=== PATIENT | male | born 1945 | race Caucasian/White ===

== ENCOUNTER 2019-07-05 08:42 | Inpatient (IN) | payer OTHER ==
[~2019-07-05] VITALS: Ht 182.9 cm; Wt 82.4 kg
[~2019-07-05 08:42] MED LIST: ASPI-515 PO; FLEC150T PO; METO50TA82 PO; SIMV40TA20 PO
--- NOTE | 2019-07-05 09:06 | NUR ---
PT WITH C/O N/V/D X1 DAY. PT STATES HE HAS HAD APPROXIMATELY 20 EPISODES OF DIARHHEA LAST NIGHT UNTIL THIS AM, PT HAS HX OF CHRONES. PT STATES HE HAS HAD NAUSEA AND DRY HEAVES ALL MORNING. PT RECIEVED FENTANYL AND ZOFRAN DEPARTURE CLERK PER EMS
[2019-07-05] MEDS ORDERED: ONDANSETRON 2MG/ML, 2ML ONE ×2 (09:49→13:24)
--- NOTE | 2019-07-05 09:52 | NUR ---
ORDERS RECIEVED, PT MEDICATED PER JUN.
[2019-07-05] MEDS ORDERED: SODIUM CHLORIDE FLUSH 10ML SYR IVF ONE (10:00)
[2019-07-05] MEDS ORDERED: SODIUM CHLORIDE 0.9% 1,000ML IVBOLUS ONE (10:00)
[2019-07-05] MEDS ORDERED: ONDANSETRON 2MG/ML, 2ML IVPush ONE ×2 (10:00→14:00)
--- NOTE | 2019-07-05 10:16 | NUR ---
PT TAKEN TO IMAGING, UA SAMPLE COLLECTED AND SENT
[2019-07-05 10:33] LABS: ALBUMIN 2.6 g/dL (3.4-5.0); ANION GAP 12 mmol/L (5-15); CALCIUM 8.1 mg/dL (8.5-10.1); CHLORIDE 103 mmol/L (98-107)
[2019-07-05 10:36] LABS: ALANINE AMINOTRANSFERASE 153 U/L (12-78); ALKALINE PHOSPHATASE 693 U/L (45-117); BILIRUBIN,TOTAL 11.1 mg/dL (0.2-1.0); CREATININE 0.87 mg/dL (0.7-1.3); TOTAL PROTEIN 7.2 g/dL (6.4-8.2)
[2019-07-05 10:41] LABS: CULTURE INDICATED? YES; MICROSCOPIC INDICATED
[2019-07-05 11:08] LABS: BASOPHILS % (AUTO) 0 % (0-1); EOSINOPHILS % (AUTO) 0 % (1-7); LYMPHOCYTES # (AUTO) 0.46 x10^3/uL (1-3.4); LYMPHOCYTES % (AUTO) 4 % (22-44); MD SCAN; MEAN CORPUSCULAR HEMOGLOBIN 30.9 pg (27.5-34.5); MEAN CORPUSCULAR HGB CONC 33.8 g/dL (33.2-36.2); MEAN CORPUSCULAR VOLUME 91.4 fL (81-97); MEAN PLATELET VOLUME 10.6 fL (7.4-10.4); MONOCYTES # (AUTO) 0.59 x10^3/uL (0.2-0.8); MONOCYTES % (AUTO) 5 % (2-9); NEUTROPHILS # (AUTO) 10.67 x10^3/uL (1.8-6.8); NEUTROPHILS % (AUTO) 91 % (42-75); PLATELET COUNT 292 x10^3/uL (130-400); RED CELL DISTRIBUTION WIDTH 16.6 % (9.4-14.8)
--- NOTE | 2019-07-05 11:26 | NUR ---
PT RESTING ON GURNEY, STATES ABD PAIN IS RETURNING, PT ALSO NAUSEATED, WILL NOTIFY RAYMUNDO
[2019-07-05] MEDS ORDERED: MORPHINE SULFATE 4 MG/ML, 1ML ONE (13:25)
[2019-07-05] MEDS ORDERED: MORPHINE SULFATE 4 MG/ML, 1ML IVPush ONE (13:30)
[2019-07-05] MEDS ORDERED: CEFTRIAXONE PMX 1GM/50ML 50 ML IV ONE (14:00)
[2019-07-05] MEDS ORDERED: CEFTRIAXONE PMX 1GM/50ML 50 ML ONE (14:21)
--- NOTE | 2019-07-05 14:28 | NUR ---
VERIFIED OK WITH ERMD, BC NOT NEEDED PRIOR TO ABX. PT MEDICATED PER JUN. PT NOW TO CT AT THIS TIME
[2019-07-05] MEDS ORDERED: OMNIPAQUE 350 MG/ML, 100ML BOTTLE ONE (15:02)
--- NOTE | 2019-07-05 15:03 | NUR ---
REPORT CALLED TO RECIEVING RN
[2019-07-05] MEDS ORDERED: ONDANSETRON ODT 4 MG PO PRN (15:30)
[2019-07-05] MEDS ORDERED: POLYETHYLENE GLYCOL 17 GM PACKET PO PRN (15:30)
[2019-07-05] MEDS ORDERED: ENALAPRILAT 1.25 MG/ML, 2ML IVPush PRN (15:30)
[2019-07-05] MEDS ORDERED: BISACODYL 10 MG SUPP PR PRN (15:30)
[2019-07-05] MEDS ORDERED: OXYcodone IR 5MG TABLET PO PRN (15:30)
[2019-07-05] MEDS ORDERED: hydrALAzine 20 MG/ML, 1ML IVPush PRN (15:30)
[2019-07-05] MEDS ORDERED: ONDANSETRON 2MG/ML, 2ML IVPush PRN (15:30)
[2019-07-05] MEDS ORDERED: DOCUSATE 100 MG CAPSULE PO PRN (15:30)
[2019-07-05] MEDS: ENOXAPARIN 80 MG/0.8 ML SQ SCH (16:43)
[2019-07-05] MEDS: MORPHINE SULFATE 4 MG/ML, 1ML IVPush PRN (16:43)
[2019-07-05] MEDS: METOPROLOL TARTRATE 50 MG TAB PO SCH ×2 (16:44→21:39)
[2019-07-05] MEDS: NS + 20MEQ KCL 1,000 ML IV SCH (18:06)
[2019-07-05 20:42] VITALS: BP 151/81
[2019-07-05] MEDS: DOXYCYCLINE 100MG TABLET PO SCH (21:40)
[2019-07-05] MEDS: FLECAINIDE 50MG TABLET PO SCH (21:40)
[2019-07-06 00:06] VITALS: BP 126/74
[2019-07-06] MEDS: NS + 20MEQ KCL 1,000 ML IV SCH ×2 (04:00→11:36)
[2019-07-06] MEDS: ENOXAPARIN 80 MG/0.8 ML SQ SCH ×2 (05:15→14:41)
[2019-07-06] MEDS: OMEPRAZOLE 20 MG CAPSULE.DR PO SCH (05:16)
[2019-07-06 06:00] LABS: ALANINE AMINOTRANSFERASE 128 U/L (12-78); ALBUMIN 2.3 g/dL (3.4-5.0); ANION GAP 8 mmol/L (5-15); CHLORIDE 104 mmol/L (98-107); CREATININE 0.73 mg/dL (0.7-1.3); MEAN CORPUSCULAR HEMOGLOBIN 31.2 pg (27.5-34.5); MEAN PLATELET VOLUME 10.8 fL (7.4-10.4); PLATELET COUNT 226 x10^3/uL (130-400); RED BLOOD COUNT 3.74 x10^6/uL (4.38-5.82)
[2019-07-06 06:02] LABS: ALKALINE PHOSPHATASE 573 U/L (45-117); BILIRUBIN,TOTAL 14.2 mg/dL (0.2-1.0); TOTAL PROTEIN 6.2 g/dL (6.4-8.2)
[2019-07-06 06:21] LABS: BASOPHILS # (AUTO) 0.03 x10^3/uL (0-0.1); BASOPHILS % (AUTO) 0 % (0-1); EOSINOPHILS # (AUTO) 0.05 x10^3/uL (0-0.4); EOSINOPHILS % (AUTO) 1 % (1-7); LYMPHOCYTES # (AUTO) 0.84 x10^3/uL (1-3.4); LYMPHOCYTES % (AUTO) 9 % (22-44); MD SCAN; MONOCYTES # (AUTO) 0.69 x10^3/uL (0.2-0.8); MONOCYTES % (AUTO) 7 % (2-9); NEUTROPHILS # (AUTO) 8.16 x10^3/uL (1.8-6.8); NEUTROPHILS % (AUTO) 84 % (42-75)
[2019-07-06 07:38] VITALS: BP 156/82
[2019-07-06] MEDS: FLECAINIDE 50MG TABLET PO SCH ×2 (08:08→20:32)
[2019-07-06] MEDS: SERTRALINE 50MG TABLET PO SCH (08:09)
[2019-07-06] MEDS: METOPROLOL TARTRATE 50 MG TAB PO SCH ×2 (08:09→20:33)
[2019-07-06] MEDS: DOXYCYCLINE 100MG TABLET PO SCH ×2 (08:09→20:32)
[2019-07-06 14:00] VITALS: BP 167/90
[2019-07-06] MEDS: CEFTRIAXONE PMX 1GM/50ML 50 ML IV SCH (14:41)
[2019-07-06 19:12] VITALS: BP 151/74
[2019-07-06] MEDS: MORPHINE SULFATE 4 MG/ML, 1ML IVPush PRN (20:44)
[2019-07-06 22:33] LABS: CLOSTRIDIUM DIFFICILE ANTIGEN NEGATIVE; CLOSTRIDIUM DIFFICILE TOXIN NEGATIVE (Negative)
[2019-07-07 00:50] VITALS: BP 158/87
[2019-07-07] MEDS: MORPHINE SULFATE 4 MG/ML, 1ML IVPush PRN ×2 (02:06→23:59)
[2019-07-07] MEDS: OMEPRAZOLE 20 MG CAPSULE.DR PO SCH (05:06)
[2019-07-07] MEDS: ENOXAPARIN 80 MG/0.8 ML SQ SCH ×2 (05:07→16:41)
[2019-07-07 05:20] VITALS: BP 130/88
[2019-07-07] MEDS ORDERED: METOPROLOL TARTRATE 50 MG TAB PO ONE (05:30)
[2019-07-07] MEDS ORDERED: FLECAINIDE 50MG TABLET PO ONE (05:30)
[2019-07-07 06:16] LABS: ALBUMIN 2.3 g/dL (3.4-5.0); ANION GAP 7 mmol/L (5-15); CALCIUM 8.2 mg/dL (8.5-10.1); CHLORIDE 107 mmol/L (98-107)
[2019-07-07 06:19] LABS: ALANINE AMINOTRANSFERASE 122 U/L (12-78); ALKALINE PHOSPHATASE 597 U/L (45-117); CREATININE 0.77 mg/dL (0.7-1.3); TOTAL PROTEIN 6.2 g/dL (6.4-8.2)
[2019-07-07 06:26] LABS: BILIRUBIN,TOTAL 18.8 mg/dL (0.2-1.0)
[2019-07-07 06:59] VITALS: BP 124/82
[2019-07-07] MEDS ORDERED: POTASSIUM CHLORIDE 20 MEQ in SODIUM CHLORIDE 0.9% 250 ML IV ONE (07:30)
[2019-07-07 07:35] LABS: MEAN CORPUSCULAR HEMOGLOBIN 31.6 pg (27.5-34.5); MEAN CORPUSCULAR HGB CONC 34.8 g/dL (33.2-36.2); MEAN CORPUSCULAR VOLUME 90.8 fL (81-97); MEAN PLATELET VOLUME 10.9 fL (7.4-10.4); PLATELET COUNT 211 x10^3/uL (130-400); RED BLOOD COUNT 3.74 x10^6/uL (4.38-5.82); RED CELL DISTRIBUTION WIDTH 16.4 % (9.4-14.8)
[2019-07-07 07:36] LABS: MD YES
[2019-07-07 07:37] LABS: BAND#(MANUAL) 0.34 x10^3/uL; BANDS%(MANUAL) 4 % (0-7); BASOS#(MANUAL) 0.09 x10^3/uL (0-0.1); BASOS% (MANUAL) 1 % (0-1); EOS#(MANUAL) 0.17 x10^3/uL (0.0-0.4); EOS% (MANUAL) 2 % (1-7); LYMPH#(MANUAL) 0.94 x10^3/uL (1-3.4); LYMPHS% (MANUAL) 11 % (22-44); MONOS% (MANUAL) 7 % (2-9); SEG#(MANUAL) 6.38 x10^3/uL (1.8-6.8); SEGS% (MANUAL) 75 % (42-75)
[2019-07-07 07:38] LABS: <PLATELET ESTIMATE> ADEQUATE; LARGE PLATELETS 1+
[2019-07-07 07:39] LABS: GIANT PLATELETS 1+; TARGET CELLS 1+
[2019-07-07 07:50] LABS: TROPONIN I < 0.015 ng/mL (0.000-0.045)
[2019-07-07 08:20] VITALS: BP 111/72
[2019-07-07] MEDS: METOPROLOL TARTRATE 50 MG TAB PO SCH ×2 (09:00→21:19)
[2019-07-07] MEDS: FLECAINIDE 50MG TABLET PO SCH ×2 (09:00→21:19)
[2019-07-07] MEDS: DOXYCYCLINE 100MG TABLET PO SCH ×2 (10:43→21:18)
[2019-07-07] MEDS: SERTRALINE 50MG TABLET PO SCH (10:43)
[2019-07-07 13:50] VITALS: BP 107/73
[2019-07-07 15:54] LABS: BILIRUBIN, DIRECT 14.6 mg/dL (0.1-0.2)
[2019-07-07] MEDS: CEFTRIAXONE PMX 1GM/50ML 50 ML IV SCH (16:41)
[2019-07-07 21:24] VITALS: BP 131/88
[2019-07-08 00:23] VITALS: BP 120/83
[2019-07-08] MEDS: ENOXAPARIN 80 MG/0.8 ML SQ SCH ×2 (04:36→16:12)
[2019-07-08] MEDS: OMEPRAZOLE 20 MG CAPSULE.DR PO SCH (05:48)
[2019-07-08 08:15] LABS: ALANINE AMINOTRANSFERASE 111 U/L (12-78); ANION GAP 4 mmol/L (5-15); CALCIUM 8.2 mg/dL (8.5-10.1); CHLORIDE 106 mmol/L (98-107); CREATININE 0.79 mg/dL (0.7-1.3)
[2019-07-08 08:17] LABS: ALKALINE PHOSPHATASE 536 U/L (45-117); TOTAL PROTEIN 5.7 g/dL (6.4-8.2)
[2019-07-08 08:27] LABS: BILIRUBIN,TOTAL 17.3 mg/dL (0.2-1.0)
[2019-07-08 09:53] VITALS: BP 129/88
[2019-07-08] MEDS: METOPROLOL TARTRATE 50 MG TAB PO SCH ×2 (09:56→23:01)
[2019-07-08] MEDS: FLECAINIDE 50MG TABLET PO SCH ×2 (09:56→23:02)
[2019-07-08] MEDS: DOXYCYCLINE 100MG TABLET PO SCH ×2 (09:57→23:02)
[2019-07-08] MEDS ORDERED: TEMAZEPAM 15 MG CAPSULE PO PRN (10:00)
[2019-07-08] MEDS: SERTRALINE 50MG TABLET PO SCH (10:02)
[2019-07-08 13:52] VITALS: BP 128/81
[2019-07-08] MEDS: CEFTRIAXONE PMX 1GM/50ML 50 ML IV SCH (14:03)
[2019-07-08 22:00] VITALS: BP 152/101
[2019-07-08] MEDS: MORPHINE SULFATE 4 MG/ML, 1ML IVPush PRN (23:01)
[2019-07-09 02:03] VITALS: BP 132/90
[2019-07-09] MEDS: OMEPRAZOLE 20 MG CAPSULE.DR PO SCH (05:04)
[2019-07-09] MEDS: ENOXAPARIN 80 MG/0.8 ML SQ SCH ×2 (05:05→17:22)
[2019-07-09 05:23] LABS: ALANINE AMINOTRANSFERASE 103 U/L (12-78); ANION GAP 5 mmol/L (5-15); CHLORIDE 105 mmol/L (98-107); CREATININE 0.77 mg/dL (0.7-1.3)
[2019-07-09 05:25] LABS: ALKALINE PHOSPHATASE 550 U/L (45-117); TOTAL PROTEIN 5.9 g/dL (6.4-8.2)
[2019-07-09 05:33] LABS: MEAN CORPUSCULAR HEMOGLOBIN 31.4 pg (27.5-34.5); MEAN CORPUSCULAR VOLUME 92.2 fL (81-97); MEAN PLATELET VOLUME 11.6 fL (7.4-10.4); PLATELET COUNT 211 x10^3/uL (130-400); RED CELL DISTRIBUTION WIDTH 16.6 % (9.4-14.8)
[2019-07-09 05:34] LABS: BILIRUBIN,TOTAL 17.4 mg/dL (0.2-1.0)
[2019-07-09 05:51] LABS: MD YES
[2019-07-09 05:52] LABS: EOS#(MANUAL) 0.32 x10^3/uL (0.0-0.4); EOS% (MANUAL) 4 % (1-7); LYMPH#(MANUAL) 0.89 x10^3/uL (1-3.4); LYMPHS% (MANUAL) 11 % (22-44); MONOS#(MANUAL) 0.65 x10^3/uL (0.3-2.7); MONOS% (MANUAL) 8 % (2-9); SEG#(MANUAL) 6.24 x10^3/uL (1.8-6.8); SEGS% (MANUAL) 77 % (42-75)
[2019-07-09 05:53] LABS: ANISOCYTOSIS 1+; POLYCHROMASIA 1+; TARGET CELLS 1+
[2019-07-09 05:54] LABS: <PLATELET ESTIMATE> ADEQUATE; GIANT PLATELETS 1+; LARGE PLATELETS 1+
[2019-07-09 08:30] VITALS: BP 125/83
[2019-07-09] MEDS ORDERED: METOPROLOL TARTRATE 50 MG TAB PO SCH (09:00)
[2019-07-09] MEDS: METOPROLOL TARTRATE 50 MG TAB PO SCH ×2 (10:00→21:14)
[2019-07-09] MEDS: SERTRALINE 50MG TABLET PO SCH (10:00)
[2019-07-09] MEDS: DOXYCYCLINE 100MG TABLET PO SCH ×2 (10:00→21:14)
[2019-07-09] MEDS: FLECAINIDE 50MG TABLET PO SCH ×2 (10:00→21:14)
[2019-07-09] MEDS ORDERED: RIVA20TA PO (10:42)
[2019-07-09] MEDS ORDERED: TRAZ50TA66 PO (10:42)
[2019-07-09] MEDS ORDERED: OMEP-110 PO (10:42)
[2019-07-09] MEDS ORDERED: SERT100T32 PO (10:42)
[2019-07-09 13:04] VITALS: BP 117/79
[2019-07-09] MEDS: CEFTRIAXONE PMX 1GM/50ML 50 ML IV SCH (13:22)
[2019-07-09] MEDS: MORPHINE SULFATE 4 MG/ML, 1ML IVPush PRN ×3 (13:22→21:28)
[2019-07-09 21:09] VITALS: BP 143/92
[2019-07-10 01:34] VITALS: BP 120/78
[2019-07-10 05:13] LABS: MEAN CORPUSCULAR HEMOGLOBIN 31.2 pg (27.5-34.5); MEAN CORPUSCULAR HGB CONC 33.8 g/dL (33.2-36.2); MEAN CORPUSCULAR VOLUME 92.3 fL (81-97); MEAN PLATELET VOLUME 11.1 fL (7.4-10.4); PLATELET COUNT 185 x10^3/uL (130-400); RED BLOOD COUNT 3.71 x10^6/uL (4.38-5.82); RED CELL DISTRIBUTION WIDTH 16.6 % (9.4-14.8)
[2019-07-10 05:15] LABS: ANION GAP 7 mmol/L (5-15); CALCIUM 7.9 mg/dL (8.5-10.1); CHLORIDE 105 mmol/L (98-107); CREATININE 0.71 mg/dL (0.7-1.3)
[2019-07-10] MEDS: OMEPRAZOLE 20 MG CAPSULE.DR PO SCH (05:37)
[2019-07-10] MEDS: ENOXAPARIN 80 MG/0.8 ML SQ SCH (05:38)
[2019-07-10 06:02] LABS: MD YES
[2019-07-10 06:04] LABS: <PLATELET ESTIMATE> ADEQUATE; ANISOCYTOSIS 1+; EOS#(MANUAL) 0.08 x10^3/uL (0.0-0.4); EOS% (MANUAL) 1 % (1-7); LYMPH#(MANUAL) 0.67 x10^3/uL (1-3.4); LYMPHS% (MANUAL) 8 % (22-44); MONOS#(MANUAL) 0.76 x10^3/uL (0.3-2.7); MONOS% (MANUAL) 9 % (2-9); POLYCHROMASIA 1+; SEG#(MANUAL) 6.89 x10^3/uL (1.8-6.8); SEGS% (MANUAL) 82 % (42-75); TARGET CELLS 1+
[2019-07-10 06:05] LABS: LARGE PLATELETS 1+
[2019-07-10 07:45] VITALS: BP 125/83
[2019-07-10] MEDS: SERTRALINE 50MG TABLET PO SCH (10:00)
[2019-07-10] MEDS: DOXYCYCLINE 100MG TABLET PO SCH ×2 (10:00→22:30)
[2019-07-10] MEDS: METOPROLOL TARTRATE 50 MG TAB PO SCH ×2 (10:00→22:30)
[2019-07-10] MEDS: FLECAINIDE 50MG TABLET PO SCH ×2 (10:01→22:29)
[2019-07-10 12:51] VITALS: BP 125/84
[2019-07-10] MEDS: CEFTRIAXONE PMX 1GM/50ML 50 ML IV SCH (15:09)
[2019-07-10] MEDS: ENOXAPARIN 100 MG/ML SQ SCH (16:53)
[2019-07-10 22:25] VITALS: BP 135/97
[2019-07-10] MEDS: MORPHINE SULFATE 4 MG/ML, 1ML IVPush PRN (22:34)
[2019-07-11 03:20] VITALS: BP 111/80
[2019-07-11] MEDS: ENOXAPARIN 100 MG/ML SQ SCH ×3 (04:30→15:39)
[2019-07-11] MEDS: OMEPRAZOLE 20 MG CAPSULE.DR PO SCH (06:20)
[2019-07-11 07:52] VITALS: BP 130/84
[2019-07-11] MEDS: METOPROLOL TARTRATE 50 MG TAB PO SCH ×2 (07:58→21:49)
[2019-07-11] MEDS: SERTRALINE 50MG TABLET PO SCH (07:58)
[2019-07-11] MEDS: DOXYCYCLINE 100MG TABLET PO SCH ×2 (07:58→21:49)
[2019-07-11] MEDS: FLECAINIDE 50MG TABLET PO SCH ×2 (07:58→21:49)
[2019-07-11 13:25] VITALS: BP 126/84
[2019-07-11] MEDS: CEFTRIAXONE PMX 1GM/50ML 50 ML IV SCH (14:15)
[2019-07-11] MEDS: MORPHINE SULFATE 4 MG/ML, 1ML IVPush PRN ×2 (16:13→21:50)
[2019-07-11 19:17] VITALS: BP 135/86
[2019-07-11] MEDS: ALUMINUM/MAG/SIMETHICONE 30 ML UDC PO PRN (23:18)
[2019-07-12 00:45] VITALS: BP 118/84
[2019-07-12] MEDS: ENOXAPARIN 100 MG/ML SQ SCH ×2 (04:30→16:33)
[2019-07-12 05:37] LABS: ALANINE AMINOTRANSFERASE 121 U/L (12-78); ALBUMIN 2.1 g/dL (3.4-5.0); ANION GAP 9 mmol/L (5-15); CALCIUM 8.1 mg/dL (8.5-10.1); CHLORIDE 105 mmol/L (98-107); CREATININE 0.68 mg/dL (0.7-1.3)
[2019-07-12 05:40] LABS: ALKALINE PHOSPHATASE 659 U/L (45-117); TOTAL PROTEIN 6.2 g/dL (6.4-8.2)
[2019-07-12 05:47] LABS: MEAN CORPUSCULAR HEMOGLOBIN 31.8 pg (27.5-34.5); MEAN CORPUSCULAR HGB CONC 34.9 g/dL (33.2-36.2); MEAN CORPUSCULAR VOLUME 91.3 fL (81-97); MEAN PLATELET VOLUME 11.1 fL (7.4-10.4); PLATELET COUNT 183 x10^3/uL (130-400); RED BLOOD COUNT 3.77 x10^6/uL (4.38-5.82); RED CELL DISTRIBUTION WIDTH 16.5 % (9.4-14.8)
[2019-07-12] MEDS: OMEPRAZOLE 20 MG CAPSULE.DR PO SCH (06:00)
[2019-07-12 06:17] LABS: MD YES
[2019-07-12 06:22] LABS: BAND#(MANUAL) 0.12 x10^3/uL; BANDS%(MANUAL) 1 % (0-7); EOS#(MANUAL) 0.35 x10^3/uL (0.0-0.4); EOS% (MANUAL) 3 % (1-7); LYMPH#(MANUAL) 0.71 x10^3/uL (1-3.4); LYMPHS% (MANUAL) 6 % (22-44); MONOS#(MANUAL) 0.47 x10^3/uL (0.3-2.7); MONOS% (MANUAL) 4 % (2-9); SEG#(MANUAL) 10.15 x10^3/uL (1.8-6.8); SEGS% (MANUAL) 86 % (42-75)
[2019-07-12 06:23] LABS: ANISOCYTOSIS 1+
[2019-07-12 06:24] LABS: POLYCHROMASIA 1+
[2019-07-12 06:25] LABS: <PLATELET ESTIMATE> ADEQUATE; LARGE PLATELETS 1+
[2019-07-12 07:20] VITALS: BP 124/83
[2019-07-12] MEDS: FLECAINIDE 50MG TABLET PO SCH ×2 (08:16→20:46)
[2019-07-12] MEDS: METOPROLOL TARTRATE 50 MG TAB PO SCH ×2 (08:16→20:47)
[2019-07-12] MEDS: SERTRALINE 50MG TABLET PO SCH (08:17)
[2019-07-12] MEDS: MORPHINE SULFATE 4 MG/ML, 1ML IVPush PRN (08:21)
[2019-07-12] MEDS: DOXYCYCLINE 100MG TABLET PO SCH ×2 (09:13→20:46)
[2019-07-12] MEDS ORDERED: FENTANYL PF 100 MCG/2ML ONE (09:30)
[2019-07-12] MEDS ORDERED: PROPOFOL 50 ML ONE (09:30)
[2019-07-12] MEDS ORDERED: PROPOFOL 10 MG/ML, 20ML ONE ×2 (10:23)
[2019-07-12] MEDS ORDERED: SUCCINYLCHOLINE 20 MG/ML, 10ML ONE (10:23)
[2019-07-12] MEDS ORDERED: OMNIPAQUE 350 MG/ML, 50 ML BOTTLE ONE (10:35)
[2019-07-12] MEDS ORDERED: EPHEDRINE 50 MG/ML, 1ML IVPush PRN (11:00)
[2019-07-12] MEDS ORDERED: ONDANSETRON ODT 8 MG PO PRN (11:00)
[2019-07-12] MEDS ORDERED: EPHEDRINE 50 MG/ML, 1ML IM PRN (11:00)
[2019-07-12] MEDS ORDERED: DIPHENHYDRAMINE 50 MG/ML, 1ML IVPush PRN (11:00)
[2019-07-12] MEDS ORDERED: MIDAZOLAM 1 MG/ML, 2ML IV PRN (11:00)
[2019-07-12] MEDS ORDERED: PROMETHAZINE 25 MG/ML, 1ML IV PRN (11:00)
[2019-07-12] MEDS ORDERED: ONDANSETRON 2MG/ML, 2ML IV PRN (11:00)
[2019-07-12] MEDS ORDERED: FENTANYL PF 100 MCG/2ML IV PRN (11:00)
[2019-07-12] MEDS ORDERED: LABETALOL 5MG/ML, 20ML IV PRN (11:00)
[2019-07-12 12:30] VITALS: BP 96/64
[2019-07-12] MEDS: CEFTRIAXONE PMX 1GM/50ML 50 ML IV SCH (13:48)
[2019-07-12 14:46] LABS: ALANINE AMINOTRANSFERASE 124 U/L (12-78); ALBUMIN 2.2 g/dL (3.4-5.0); ANION GAP 6 mmol/L (5-15); CALCIUM 8.2 mg/dL (8.5-10.1); CHLORIDE 104 mmol/L (98-107); CREATININE 0.96 mg/dL (0.7-1.3)
[2019-07-12 14:49] LABS: ALKALINE PHOSPHATASE 653 U/L (45-117); TOTAL PROTEIN 6.4 g/dL (6.4-8.2)
[2019-07-12] MEDS ORDERED: GLUCAGON 1 MG ONE (14:52)
[2019-07-12 14:53] LABS: BILIRUBIN,TOTAL 19.6 mg/dL (0.2-1.0)
[2019-07-12 19:15] VITALS: BP 127/85
[2019-07-12] MEDS ORDERED: ROCURONIUM 10MG/ML,5ML ONE (19:40)
[2019-07-12] MEDS: ALUMINUM/MAG/SIMETHICONE 30 ML UDC PO PRN (20:46)
[2019-07-13 00:33] VITALS: BP 95/62
[2019-07-13 05:31] LABS: MEAN CORPUSCULAR HEMOGLOBIN 31.8 pg (27.5-34.5); MEAN CORPUSCULAR VOLUME 93.5 fL (81-97); MEAN PLATELET VOLUME 11.2 fL (7.4-10.4); PLATELET COUNT 209 x10^3/uL (130-400); RED BLOOD COUNT 3.94 x10^6/uL (4.38-5.82); RED CELL DISTRIBUTION WIDTH 16.5 % (9.4-14.8)
[2019-07-13 05:36] LABS: ALANINE AMINOTRANSFERASE 129 U/L (12-78); ALBUMIN 2.1 g/dL (3.4-5.0); ANION GAP 6 mmol/L (5-15); CALCIUM 8.3 mg/dL (8.5-10.1); CHLORIDE 105 mmol/L (98-107); CREATININE 0.93 mg/dL (0.7-1.3)
[2019-07-13 05:38] LABS: ALKALINE PHOSPHATASE 676 U/L (45-117); TOTAL PROTEIN 6.4 g/dL (6.4-8.2)
[2019-07-13] MEDS: ENOXAPARIN 100 MG/ML SQ SCH (05:39)
[2019-07-13] MEDS: OMEPRAZOLE 20 MG CAPSULE.DR PO SCH (05:39)
[2019-07-13 06:10] LABS: MD YES
[2019-07-13 06:12] LABS: ANISOCYTOSIS 1+; BANDS%(MANUAL) 1 % (0-7); EOS#(MANUAL) 0.41 x10^3/uL (0.0-0.4); EOS% (MANUAL) 4 % (1-7); LYMPH#(MANUAL) 1.44 x10^3/uL (1-3.4); LYMPHS% (MANUAL) 14 % (22-44); MONOS#(MANUAL) 0.31 x10^3/uL (0.3-2.7); MONOS% (MANUAL) 3 % (2-9); POLYCHROMASIA 1+; SEG#(MANUAL) 8.03 x10^3/uL (1.8-6.8); SEGS% (MANUAL) 78 % (42-75)
[2019-07-13 06:13] LABS: TARGET CELLS 1+
[2019-07-13 06:14] LABS: <PLATELET ESTIMATE> ADEQUATE; LARGE PLATELETS 1+
[2019-07-13 07:37] VITALS: BP 122/79
[2019-07-13] MEDS: METOPROLOL TARTRATE 50 MG TAB PO SCH ×2 (08:19→21:33)
[2019-07-13] MEDS: DOXYCYCLINE 100MG TABLET PO SCH (08:19)
[2019-07-13] MEDS: SERTRALINE 50MG TABLET PO SCH (08:20)
[2019-07-13] MEDS: ALUMINUM/MAG/SIMETHICONE 30 ML UDC PO PRN (08:20)
[2019-07-13] MEDS: FLECAINIDE 50MG TABLET PO SCH ×2 (08:20→21:33)
[2019-07-13] MEDS: MORPHINE SULFATE 4 MG/ML, 1ML IVPush PRN (08:54)
[2019-07-13] MEDS ORDERED: MORPHINE SULFATE 4 MG/ML, 1ML IVPush PRN (09:30)
[2019-07-13] MEDS ORDERED: KETOROLAC 30 MG/1 ML IVPush PRN (09:30)
[2019-07-13] MEDS ORDERED: PROCHLORPERAZINE 5 MG/ML, 2ML IV SCH (11:30)
[2019-07-13] MEDS ORDERED: PROCHLORPERAZINE 5 MG/ML, 2ML IM PRN (11:30)
[2019-07-13] MEDS ORDERED: OXYcodone IR 5MG TABLET PO PRN (11:30)
[2019-07-13 12:35] VITALS: BP 110/79
[2019-07-13] MEDS: LACTOBACILLUS CHEW TABLET PO SCH ×2 (17:17→21:33)
[2019-07-13] MEDS: ENOXAPARIN 80 MG/0.8 ML SQ SCH (17:17)
[2019-07-13] MEDS: PROCHLORPERAZINE 5 MG/ML, 2ML IV PRN ×2 (17:18→21:34)
[2019-07-13 19:39] VITALS: BP 106/72
[2019-07-14 00:28] VITALS: BP 97/63
[2019-07-14 07:01] VITALS: BP 100/67
[2019-07-14] MEDS: METOPROLOL TARTRATE 50 MG TAB PO SCH ×2 (07:28→21:51)
[2019-07-14] MEDS: LACTOBACILLUS CHEW TABLET PO SCH ×3 (07:28→21:52)
[2019-07-14] MEDS: OMEPRAZOLE 20 MG CAPSULE.DR PO SCH (07:28)
[2019-07-14] MEDS: SERTRALINE 50MG TABLET PO SCH (07:29)
[2019-07-14] MEDS: FLECAINIDE 50MG TABLET PO SCH ×2 (07:29→21:52)
[2019-07-14] MEDS: ENOXAPARIN 80 MG/0.8 ML SQ SCH ×2 (07:29→17:14)
[2019-07-14] MEDS: PROCHLORPERAZINE 5 MG/ML, 2ML IV PRN ×2 (07:30→12:36)
[2019-07-14] MEDS ORDERED: SODIUM CHLORIDE 0.9% 1,000 ML IV SCH (08:30)
[2019-07-14 10:05] LABS: ALBUMIN 1.8 g/dL (3.4-5.0)
[2019-07-14 10:07] LABS: BILIRUBIN,INDIRECT 2.7 mg/dL (0.0-2.0); TOTAL PROTEIN 5.5 g/dL (6.4-8.2)
[2019-07-14 10:22] LABS: BILIRUBIN, DIRECT 13.7 mg/dL (0.1-0.2); BILIRUBIN,TOTAL 16.4 mg/dL (0.2-1.0)
[2019-07-14 13:22] VITALS: BP 96/64
[2019-07-14 15:05] VITALS: BP 105/70
[2019-07-14 21:48] VITALS: BP 112/76
[2019-07-15 01:59] VITALS: BP 98/68
[2019-07-15 06:08] LABS: ALBUMIN 1.8 g/dL (3.4-5.0)
[2019-07-15 06:13] LABS: BILIRUBIN,INDIRECT 2.5 mg/dL (0.0-2.0); BILIRUBIN,TOTAL 14.7 mg/dL (0.2-1.0); TOTAL PROTEIN 5.6 g/dL (6.4-8.2)
[2019-07-15 06:18] LABS: BILIRUBIN, DIRECT 12.2 mg/dL (0.1-0.2)
[2019-07-15] MEDS: OMEPRAZOLE 20 MG CAPSULE.DR PO SCH (06:19)
[2019-07-15] MEDS: ENOXAPARIN 80 MG/0.8 ML SQ SCH (06:19)
[2019-07-15] MEDS: SODIUM CHLORIDE 0.9% 1,000 ML IV SCH ×2 (06:20→21:39)
[2019-07-15] MEDS: PROCHLORPERAZINE 5 MG/ML, 2ML IV PRN (08:09)
[2019-07-15] MEDS: FLECAINIDE 50MG TABLET PO SCH ×2 (08:09→21:38)
[2019-07-15] MEDS: LACTOBACILLUS CHEW TABLET PO SCH ×3 (08:10→21:38)
[2019-07-15] MEDS: SERTRALINE 50MG TABLET PO SCH (08:10)
[2019-07-15 08:12] VITALS: BP 99/61
[2019-07-15] MEDS ORDERED: METOPROLOL TARTRATE 50 MG TAB PO SCH (09:00)
[2019-07-15] MEDS ORDERED: AMIODARONE 200 MG TABLET ONE (10:26)
[2019-07-15 10:28] VITALS: BP 115/77
[2019-07-15] MEDS: AMIODARONE 200 MG TABLET PO SCH (10:29)
[2019-07-15 14:56] VITALS: BP 103/72
[2019-07-15] MEDS: RIVAROXABAN 20 MG TABLET PO SCH (17:28)
[2019-07-15 19:31] VITALS: BP 112/76
[2019-07-15] MEDS ORDERED: METOPROLOL SUCCINATE 100 MG TAB.ER.24H PO SCH (21:00)
[2019-07-15 21:35] VITALS: BP 110/75
[2019-07-16] VITALS (7 sets, daily range): BP systolic 96–124; BP diastolic 67–84
[2019-07-16 04:59] LABS: MEAN CORPUSCULAR HGB CONC 33.7 g/dL (33.2-36.2); MEAN CORPUSCULAR VOLUME 94.8 fL (81-97); MEAN PLATELET VOLUME 10.6 fL (7.4-10.4); PLATELET COUNT 230 x10^3/uL (130-400); RED BLOOD COUNT 2.93 x10^6/uL (4.38-5.82)
[2019-07-16 05:08] LABS: ALBUMIN 1.9 g/dL (3.4-5.0); ANION GAP 9 mmol/L (5-15); CALCIUM 8.2 mg/dL (8.5-10.1); CHLORIDE 107 mmol/L (98-107)
[2019-07-16 05:12] LABS: ALANINE AMINOTRANSFERASE 154 U/L (12-78); ALKALINE PHOSPHATASE 842 U/L (45-117); BILIRUBIN,TOTAL 13.5 mg/dL (0.2-1.0); CREATININE 0.58 mg/dL (0.7-1.3)
[2019-07-16] MEDS: OMEPRAZOLE 20 MG CAPSULE.DR PO SCH (05:43)
[2019-07-16 06:13] LABS: MD YES
[2019-07-16 06:18] LABS: BANDS%(MANUAL) 2 % (0-7); BASOS% (MANUAL) 1 % (0-1); EOS% (MANUAL) 1 % (1-7); LYMPH#(MANUAL) 1.29 x10^3/uL (1-3.4); LYMPHS% (MANUAL) 13 % (22-44); METAMYELOCYTES% (MANUAL) 2 % (0-1); MONOS% (MANUAL) 5 % (2-9); SEG#(MANUAL) 7.52 x10^3/uL (1.8-6.8); SEGS% (MANUAL) 76 % (42-75)
[2019-07-16 06:19] LABS: <PLATELET ESTIMATE> ADEQUATE; <PLT MORPHOLOGY> NORMAL PLT MORPH
[2019-07-16 06:21] LABS: ANISOCYTOSIS 1+
[2019-07-16 06:23] LABS: POLYCHROMASIA 1+; TARGET CELLS 1+
[2019-07-16] MEDS ORDERED: METOPROLOL TARTRATE 50 MG TAB PO SCH ×2 (10:00→14:00)
[2019-07-16] MEDS: AMIODARONE 200 MG TABLET PO SCH (10:21)
[2019-07-16] MEDS: FLECAINIDE 50MG TABLET PO SCH ×2 (10:21→21:24)
[2019-07-16] MEDS: LACTOBACILLUS CHEW TABLET PO SCH ×3 (10:21→21:25)
[2019-07-16] MEDS: SERTRALINE 50MG TABLET PO SCH (10:21)
[2019-07-16] MEDS: SODIUM CHLORIDE 0.9% 1,000 ML IV SCH (12:32)
[2019-07-16] MEDS: RIVAROXABAN 20 MG TABLET PO SCH (16:35)
[2019-07-16] MEDS: METOPROLOL TARTRATE 25 MG TAB PO SCH (21:25)
[2019-07-17 00:38] VITALS: BP 117/78
[2019-07-17] MEDS: SODIUM CHLORIDE 0.9% 1,000 ML IV SCH ×2 (03:07→18:11)
[2019-07-17 05:54] VITALS: BP 113/79
[2019-07-17] MEDS: METOPROLOL TARTRATE 25 MG TAB PO SCH (05:56)
[2019-07-17] MEDS: OMEPRAZOLE 20 MG CAPSULE.DR PO SCH (05:56)
[2019-07-17 06:05] LABS: MEAN CORPUSCULAR HEMOGLOBIN 32.5 pg (27.5-34.5); MEAN CORPUSCULAR HGB CONC 34.5 g/dL (33.2-36.2); MEAN CORPUSCULAR VOLUME 94.3 fL (81-97); MEAN PLATELET VOLUME 10.4 fL (7.4-10.4); PLATELET COUNT 252 x10^3/uL (130-400); RED BLOOD COUNT 2.73 x10^6/uL (4.38-5.82); RED CELL DISTRIBUTION WIDTH 15.9 % (9.4-14.8)
[2019-07-17 06:16] LABS: ALBUMIN 1.9 g/dL (3.4-5.0); ANION GAP 9 mmol/L (5-15); CALCIUM 8.2 mg/dL (8.5-10.1); CHLORIDE 108 mmol/L (98-107)
[2019-07-17 06:20] LABS: ALANINE AMINOTRANSFERASE 170 U/L (12-78); ALKALINE PHOSPHATASE 893 U/L (45-117); BILIRUBIN,TOTAL 11.6 mg/dL (0.2-1.0); CREATININE 0.54 mg/dL (0.7-1.3)
[2019-07-17 06:47] LABS: MD YES
[2019-07-17 06:49] LABS: ANISOCYTOSIS 1+; LYMPH#(MANUAL) 1.34 x10^3/uL (1-3.4); LYMPHS% (MANUAL) 14 % (22-44); MONOS#(MANUAL) 0.77 x10^3/uL (0.3-2.7); MONOS% (MANUAL) 8 % (2-9); MYELOCYTES# (MANUAL) 0.19 x10^3/uL (0-0); MYELOCYTES% (MANUAL) 2 % (0-0); SEGS% (MANUAL) 76 % (42-75)
[2019-07-17 06:50] LABS: <PLATELET ESTIMATE> ADEQUATE; <PLT MORPHOLOGY> NORMAL PLT MORPH; POLYCHROMASIA 1+
[2019-07-17 06:57] VITALS: BP 108/83
[2019-07-17 09:01] VITALS: BP 110/71
[2019-07-17] MEDS: LACTOBACILLUS CHEW TABLET PO SCH ×3 (09:01→21:30)
[2019-07-17] MEDS: SERTRALINE 50MG TABLET PO SCH (09:02)
[2019-07-17] MEDS: AMIODARONE 200 MG TABLET PO SCH (09:02)
[2019-07-17] MEDS: FLECAINIDE 50MG TABLET PO SCH ×2 (09:03→21:30)
[2019-07-17] MEDS ORDERED: METOPROLOL TARTRATE 25 MG TAB PO SCH ×3 (11:30→21:00)
[2019-07-17 13:59] VITALS: BP 102/72
[2019-07-17 21:28] VITALS: BP 114/72
[2019-07-18 01:56] VITALS: BP 114/80
[2019-07-18] MEDS: OMEPRAZOLE 20 MG CAPSULE.DR PO SCH (05:49)
[2019-07-18 07:30] VITALS: BP 104/68
[2019-07-18] MEDS: SODIUM CHLORIDE 0.9% 1,000 ML IV SCH ×2 (07:32→22:19)
[2019-07-18] MEDS: SERTRALINE 50MG TABLET PO SCH (07:32)
[2019-07-18] MEDS: FLECAINIDE 50MG TABLET PO SCH ×2 (07:33→21:59)
[2019-07-18] MEDS: LACTOBACILLUS CHEW TABLET PO SCH ×3 (07:33→21:58)
[2019-07-18] MEDS: AMIODARONE 200 MG TABLET PO SCH (07:57)
[2019-07-18] MEDS: METOPROLOL TARTRATE 50 MG TAB PO SCH ×2 (07:58→21:59)
[2019-07-18 10:45] LABS: ANION GAP 10 mmol/L (5-15); CALCIUM 8.4 mg/dL (8.5-10.1); CHLORIDE 106 mmol/L (98-107); CREATININE 0.87 mg/dL (0.7-1.3)
[2019-07-18 10:48] LABS: MEAN CORPUSCULAR HEMOGLOBIN 32.6 pg (27.5-34.5); MEAN CORPUSCULAR VOLUME 95.7 fL (81-97); MEAN PLATELET VOLUME 9.6 fL (7.4-10.4); PLATELET COUNT 410 x10^3/uL (130-400); RED BLOOD COUNT 3.02 x10^6/uL (4.38-5.82); RED CELL DISTRIBUTION WIDTH 15.6 % (9.4-14.8)
[2019-07-18 11:04] LABS: ALBUMIN 2.1 g/dL (3.4-5.0)
[2019-07-18 11:06] LABS: BASOPHILS # (AUTO) 0.03 x10^3/uL (0-0.1); BASOPHILS % (AUTO) 0 % (0-1); EOSINOPHILS # (AUTO) 0.25 x10^3/uL (0-0.4); EOSINOPHILS % (AUTO) 2 % (1-7); LYMPHOCYTES # (AUTO) 1.76 x10^3/uL (1-3.4); LYMPHOCYTES % (AUTO) 15 % (22-44); MD SCAN; MONOCYTES % (AUTO) 6 % (2-9); NEUTROPHILS % (AUTO) 77 % (42-75)
[2019-07-18 11:18] LABS: BILIRUBIN,INDIRECT 1.6 mg/dL (0.0-2.0); BILIRUBIN,TOTAL 12.3 mg/dL (0.2-1.0); TOTAL PROTEIN 6.7 g/dL (6.4-8.2)
[2019-07-18 11:21] LABS: BILIRUBIN, DIRECT 10.7 mg/dL (0.1-0.2)
[2019-07-18 14:28] VITALS: BP 101/65
[2019-07-18 20:50] VITALS: BP 110/69
[2019-07-19 02:51] VITALS: BP 105/67
[2019-07-19 05:02] LABS: ALBUMIN 1.9 g/dL (3.4-5.0); ANION GAP 6 mmol/L (5-15); CALCIUM 8.1 mg/dL (8.5-10.1); CHLORIDE 108 mmol/L (98-107)
[2019-07-19 05:18] LABS: ALANINE AMINOTRANSFERASE 208 U/L (12-78); ALKALINE PHOSPHATASE 1051 U/L (45-117); BILIRUBIN,TOTAL 10.7 mg/dL (0.2-1.0); CREATININE 0.71 mg/dL (0.7-1.3); TOTAL PROTEIN 6.1 g/dL (6.4-8.2)
[2019-07-19] MEDS: OMEPRAZOLE 20 MG CAPSULE.DR PO SCH (06:22)
[2019-07-19 07:33] LABS: BASOPHILS # (AUTO) 0.02 x10^3/uL (0-0.1); BASOPHILS % (AUTO) 0 % (0-1); EOSINOPHILS # (AUTO) 0.25 x10^3/uL (0-0.4); EOSINOPHILS % (AUTO) 2 % (1-7); LYMPHOCYTES # (AUTO) 1.31 x10^3/uL (1-3.4); LYMPHOCYTES % (AUTO) 13 % (22-44); MD NO; MEAN CORPUSCULAR HEMOGLOBIN 32.4 pg (27.5-34.5); MEAN CORPUSCULAR HGB CONC 33.3 g/dL (33.2-36.2); MEAN CORPUSCULAR VOLUME 97.2 fL (81-97); MEAN PLATELET VOLUME 10.4 fL (7.4-10.4); MONOCYTES # (AUTO) 0.64 x10^3/uL (0.2-0.8); MONOCYTES % (AUTO) 6 % (2-9); NEUTROPHILS # (AUTO) 8.14 x10^3/uL (1.8-6.8); NEUTROPHILS % (AUTO) 79 % (42-75); PLATELET COUNT 323 x10^3/uL (130-400); RED BLOOD COUNT 2.65 x10^6/uL (4.38-5.82); RED CELL DISTRIBUTION WIDTH 16.2 % (9.4-14.8)
[2019-07-19 07:47] VITALS: BP 110/69
[2019-07-19] MEDS: SERTRALINE 50MG TABLET PO SCH (08:52)
[2019-07-19] MEDS: FLECAINIDE 50MG TABLET PO SCH (08:52)
[2019-07-19] MEDS: AMIODARONE 200 MG TABLET PO SCH (08:52)
[2019-07-19] MEDS: LACTOBACILLUS CHEW TABLET PO SCH (08:53)
[2019-07-19] MEDS: METOPROLOL TARTRATE 50 MG TAB PO SCH (08:53)
[2019-07-19 12:44] VITALS: BP 112/70
[2019-07-19] MEDS: SODIUM CHLORIDE 0.9% 1,000 ML IV SCH (13:54)
== END 2019-07-19 15:59 | disposition home or self-care (01) | DRG 444 ==
LOC: ED 14:09 → EDIP 14:31 → 3N 15:50 → 5SO 07-07 08:17
PROVIDERS: ADMIT Internal Medicine; ATTEND Hospitalist
PROC: 0FC98ZZ Extirpation of Matter from Common Bile Duct, Via Natural or Artificial Opening Endoscopic (ICD-10-PCS; 2019-07-12)
PROC: 0F798DZ Dilation of Common Bile Duct with Intraluminal Device, Via Natural or Artificial Opening Endoscopic (ICD-10-PCS; principal; 2019-07-12 10:00)
DX: K83.1 Obstruction of bile duct (principal); E43 Unspecified severe protein-calorie malnutrition; C22.0 Liver cell carcinoma; N39.0 Urinary tract infection, site not specified; D68.69 Other thrombophilia; R17 Unspecified jaundice; J90 Pleural effusion, not elsewhere classified; K50.90 Crohn's disease, unspecified, without complications; E86.0 Dehydration; I10 Essential (primary) hypertension; I48.0 Paroxysmal atrial fibrillation; J20.9 Acute bronchitis, unspecified; F43.10 Post-traumatic stress disorder, unspecified; D64.9 Anemia, unspecified; Z85.05 Personal history of malignant neoplasm of liver; Z98.42 Cataract extraction status, left eye; Z98.41 Cataract extraction status, right eye; Z87.891 Personal history of nicotine dependence; Z79.899 Other long term (current) drug therapy; Z86.19 Personal history of other infectious and parasitic diseases; Z80.3 Family history of malignant neoplasm of breast; Z79.01 Long term (current) use of anticoagulants; Z68.24 Body mass index [BMI] 24.0-24.9, adult
CPT/HCPCS: 36415; 74022; 74177; 74181; 74183; 74328; 76705; 78226; 80048; 80053; 80076; 81001; 82105; 82140; 82248; 82378; 83690; 83735; 84100; 84484; 85025; 87086; 87324; 93005; 96361; 96365; 96375; 99285; G0378; J0696; J1650; J2405; J2704; J3010; J3480; Q0162; Q9967; A9537; C1769; C1894; C2625; J0330; J0780; J1610; J2270; J7030; J7050

== ENCOUNTER 2019-08-01 11:06 | Emergency (ER) | payer OTHER ==
[~2019-08-01] VITALS: Ht 182.9 cm; Wt 85.0 kg
[~2019-08-01 11:06] MED LIST changes: +OMEP-110 PO; +RIVA20TA PO; +SERT100T32 PO; +TRAZ50TA66 PO
--- NOTE | 2019-08-01 11:15 | NUR ---
pt to ed for increasing jaundince and dizziness. pt was recently admitted for stent placement in common bile duct. pt connected to monitors. tachy, afib, hotn 92/72, all other vss on ra. Dr. Smith to bs for assessment. awaiting orders.
[2019-08-01] MEDS ORDERED: SODIUM CHLORIDE 0.9% 1,000ML IVBOLUS ONE (11:30)
[2019-08-01] MEDS ORDERED: DIPHENHYDRAMINE 50 MG/ML, 1ML IVPush ONE (11:30)
[2019-08-01] MEDS ORDERED: PLEASE ENTER HEIGHT AND WEIGHT MC SCH (11:30)
[2019-08-01] MEDS ORDERED: METOCLOPRAMIDE 5 MG/ML, 2ML IVPush ONE (11:30)
[2019-08-01] MEDS ORDERED: SODIUM CHLORIDE FLUSH 10ML SYR IVF ONE (11:30)
[2019-08-01] MEDS ORDERED: METOCLOPRAMIDE 5 MG/ML, 2ML ONE (11:34)
[2019-08-01] MEDS ORDERED: DIPHENHYDRAMINE 50 MG/ML, 1ML ONE (11:34)
--- NOTE | 2019-08-01 11:52 | NUR ---
pt resting in room. vss. piv established and pt medicated per jun. labs drawn. xr complete. awaiting ct.
[2019-08-01 11:55] LABS: MEAN CORPUSCULAR HEMOGLOBIN 31.3 pg (27.5-34.5); MEAN CORPUSCULAR VOLUME 94.7 fL (81-97); MEAN PLATELET VOLUME 9.9 fL (7.4-10.4); PLATELET COUNT 213 x10^3/uL (130-400); RED CELL DISTRIBUTION WIDTH 15.8 % (9.4-14.8)
[2019-08-01 11:57] LABS: INTERNATIONAL NORMALIZED RATIO 1.19 (0.93-1.1); PROTHROMBIN TIME 12.6 Seconds (9.6-11.5)
[2019-08-01 12:08] LABS: ALANINE AMINOTRANSFERASE 149 U/L (12-78); ALBUMIN 1.6 g/dL (3.4-5.0); ANION GAP 9 mmol/L (5-15); CALCIUM 7.8 mg/dL (8.5-10.1); CHLORIDE 104 mmol/L (98-107); CREATININE 0.68 mg/dL (0.7-1.3)
[2019-08-01 12:10] LABS: ALKALINE PHOSPHATASE 952 U/L (45-117); BILIRUBIN,TOTAL 10.3 mg/dL (0.2-1.0); TOTAL PROTEIN 5.9 g/dL (6.4-8.2)
[2019-08-01 12:18] LABS: MD YES
[2019-08-01 12:20] LABS: ANISOCYTOSIS 1+; BAND#(MANUAL) 0.08 x10^3/uL; BANDS%(MANUAL) 1 % (0-7); EOS#(MANUAL) 0.17 x10^3/uL (0.0-0.4); EOS% (MANUAL) 2 % (1-7); LYMPH#(MANUAL) 1.25 x10^3/uL (1-3.4); LYMPHS% (MANUAL) 15 % (22-44); MONOS#(MANUAL) 0.33 x10^3/uL (0.3-2.7); MONOS% (MANUAL) 4 % (2-9); POLYCHROMASIA 1+; SEG#(MANUAL) 6.47 x10^3/uL (1.8-6.8); SEGS% (MANUAL) 78 % (42-75)
[2019-08-01 12:21] LABS: <PLATELET ESTIMATE> ADEQUATE; <PLT MORPHOLOGY> NORMAL PLT MORPH
[2019-08-01] MEDS ORDERED: OMNIPAQUE 350 MG/ML, 100ML BOTTLE ONE (12:58)
--- NOTE | 2019-08-01 13:09 | NUR ---
pt resting in room. vss. warm blankets provided for comfort. ua collected and sent. awaiting lab results and ct.
[2019-08-01 13:28] LABS: CULTURE INDICATED? YES; MICROSCOPIC INDICATED
--- NOTE | 2019-08-01 13:30 | NUR ---
ALL RESULTS ABCK AT THIS TIME. CHART UP FOR RECHECK.
--- NOTE | 2019-08-01 14:05 | NUR ---
BREAK RN NOTE: VSS, ALL RESULTS BACK, CHART UP FOR RECHECK. AWAITING MD AND DISPO AT THIS TIME.
[2019-08-01] MEDS ORDERED: POTASSIUM CHLORIDE 20 MEQ PACKET PO ONE (14:30)
[2019-08-01] MEDS ORDERED: POTASSIUM CHLORIDE 20 MEQ PACKET ONE (14:46)
[2019-08-01 14:49] VITALS: BP 108/69
[2019-08-01] MEDS ORDERED: DILTIAZEM 5 MG/ML, 5ML IVPush ONE (15:00)
== END 2019-08-01 15:39 | disposition home or self-care (01) ==
LOC: ED 13:30
DX: I48.0 Paroxysmal atrial fibrillation (principal); R94.5 Abnormal results of liver function studies; R16.0 Hepatomegaly, not elsewhere classified; C22.9 Malignant neoplasm of liver, not specified as primary or secondary; R42 Dizziness and giddiness
CPT/HCPCS: 36415; 71045; 74177; 80053; 81001; 82140; 83605; 83690; 85025; 85610; 87086; 93005; 96361; 96374; 96375; 99285; J1200; J2765; J7030; Q9967